=== PATIENT | female | born 1940 | race Two or more races ===

== ENCOUNTER 2022-10-03 07:00 | Inpatient (IN) | payer OTHER ==
[~2022-10-03] VITALS: Ht 154.9 cm; Wt 65.8 kg
[2022-10-03] MEDS ORDERED: COZAAR25 MG PO (08:54)
[2022-10-03] MEDS ORDERED: SYNTHROID88 MCG PO (08:55)
[2022-10-07] MEDS ORDERED: ADK 10 (08:01)
== END 2022-10-11 08:01 | disposition home or self-care (01) | DRG 658 ==
LOC: O/R 10-07 05:28 → SURH 10-07 07:00
PROVIDERS: ADMIT Urology; ATTEND Urology
PROC: 0TT74ZZ Resection of Left Ureter, Percutaneous Endoscopic Approach (ICD-10-PCS; 2022-10-07)
PROC: 0TT14ZZ Resection of Left Kidney, Percutaneous Endoscopic Approach (ICD-10-PCS; principal; 2022-10-07 07:00)
DX: C65.2 Malignant neoplasm of left renal pelvis (principal); I10 Essential (primary) hypertension; E03.9 Hypothyroidism, unspecified